=== PATIENT | male | born 1960 | race Caucasian/White ===

== ENCOUNTER 2023-04-08 09:46 | Outpatient (CLI) | payer OTHER | END 2023-04-08 09:47 | disposition home or self-care (01) | LOC: CSHMRI 09:46 | PROVIDERS: ATTEND Surgery | DX: M54.2 Cervicalgia (principal); M47.812 Spondylosis without myelopathy or radiculopathy, cervical region; M48.02 Spinal stenosis, cervical region | CPT/HCPCS: 72050; 72141 ==